=== PATIENT | male | born 1965 | race Caucasian/White ===

== ENCOUNTER 2017-06-29 18:42 | Emergency (ER) | payer OTHER ==
[~2017-06-29] VITALS: Ht 180.3 cm; Wt 113.4 kg
[2017-06-29] MEDS ORDERED: SYNTHROID175 MCG (19:00)
[2017-06-29] MEDS ORDERED: LOSARTAN-HCTZ1 EACH (19:00)
[2017-06-29] MEDS ORDERED: MEDROLPACK PO (21:22)
[2017-06-29] MEDS ORDERED: KETO10TA2 PO (21:22)
== END 2017-06-29 21:37 | disposition home or self-care (01) ==
LOC: ER 18:42
DX: M72.2 Plantar fascial fibromatosis (principal); G56.01 Carpal tunnel syndrome, right upper limb